=== PATIENT | female | born 1980 | race Two or more races ===

== ENCOUNTER 2024-07-16 15:16 | Emergency (ER) | payer OTHER, SELFPAY ==
[2024-07-16 15:23] VITALS: BP 133/96
[2024-07-16 15:54] LABS: % Basophils 0.4 % (0-2); % Eosinophils 1.5 % (0-6); % Immature Granulocytes 0.3 % (0-0.5); % Lymphocytes 28.1 % (20.5-51.1); % Monocytes 6.3 % (1.7-9.3); % Neutrophils 63.4 % (42.2-75.2); Absolute Eosinophils 0.1 10^3/uL (0-0.7); Absolute Lymphocytes 2.2 10^3/uL (1.2-3.4); Absolute Monocytes 0.5 10^3/uL (0.1-0.6); Absolute Neutrophils 4.9 10^3/uL (1.4-6.5); Hematocrit 39.1 % (37.0-47.0); Hemoglobin 13.4 g/dL (12.0-16.0); Mean Corp Hgb Conc. 34.3 g/dL (33.0-37.0); Mean Corpuscular Hgb 31.2 pg (27.0-31.0); Mean Corpuscular Volume 90.9 fL (81.0-99.0); Mean Platelet Volume 9.4 fL (7.4-10.4); Nucleated Red Blood Cells % 0 %; Platelet Count 366 10^3/uL (130-400); Red Cell Dist. Width 12.7 % (11.5-14.5); White Blood Cell Count 7.8 10^3/uL (4.8-10.8)
[2024-07-16 15:56] LABS: Urine Albumin Negative (Neg - Trace); Urine Bilirubin Negative (Negative); Urine Character Clear (Clear); Urine Color Yellow; Urine Glucose Negative (Negative); Urine Ketone Negative (Negative); Urine Leukocyte Negative (Negative); Urine Nitrite Negative (Negative); Urine Occult Blood Negative (Negative); Urine Urobilinogen Negative (Neg - 1+)
[2024-07-16 16:04] VITALS: BMI 34.9
[2024-07-16 16:05] LABS: HCG, Serum Qualitative Screen Negative
[2024-07-16 16:07] VITALS: BP 106/66
[2024-07-16 16:10] LABS: ALT (SGPT) 47 U/L (0-35); AST (SGOT) 30 U/L (14-36); Albumin 4.3 g/dl (3.5-5.0); Alkaline Phosphatase 100 U/L (38-126); Blood Urea Nitrogen 16 mg/dl (7-17); Calcium 10.4 mg/dl (8.4-10.2); Carbon Dioxide 26 mmol/L (22-30); Chloride 106 mmol/L (98-107); Estimated Creatinine Clearance 110 ml/min; Glucose 99 mg/dl (70-99); Lipase 131 U/L (23-300); Potassium 4.2 mmol/L (3.5-5.1); Sodium 141 mmol/L (135-145); Total Bilirubin 0.4 mg/dl (0.2-1.3); Total Protein 7.7 g/dl (6.3-8.2); eGFR > 60.00
--- NOTE | 2024-07-16 16:26 | ED.GENMED ---
History of Present Illness
General
Chief Complaint: Abdominal Pain
Source: patient
Exam Limitations: none
Time Seen by Provider: 07/16/24 16:12
Nursing documentation reviewed up to this point in time: agreed with
History of Present Illness
History of Present Illness:
Patient is a 43-year-old female past medical history of Crohn's since age 11 well-controlled on Apriso oral medication. She reports for the past week and a half she has had right-sided abdominal pain and typically when she gets Crohn's pain she has
pain on the left side. She does feel wraparound to the back. She does feel slightly worse with food and worsens throughout the day. She is urinating a little more frequently but denies any burning, pain. She denies any fever or chills. She
denies any change in stool habits. She is followed by GI Dr. Lexx Calvo at [place].
She denies any chest pain ,denies any shortness of breath.
Pt does not smoke
Review of Systems
Review of Systems
Allergies reviewed?: Yes
All Other Systems: ROS reviewed and negative except as documented in HPI and ROS
Constitutional: Reports no symptoms; Denies fever, fatigue or chills
Respiratory: Reports no symptoms; Denies trouble breathing
Cardiac: Reports no symptoms; Denies chest pain, palpitations or syncope
ABD/GI: Reports abdominal pain; Denies nausea, vomiting or diarrhea
: Reports frequency; Denies flank pain, urgency or discharge
Musculoskeletal: Reports back pain (right sided abd pain radiates to back )
Skin: Reports no symptoms
Neurological: Reports no symptoms
Psychiatric: Reports no symptoms
Phy Exam
General Physical Exam
General Presentation: no apparent distress
General age: appears stated age
General Skin: warm and dry
General Habitus: normal
General Mental: alert
General Hydration: appears well hydrated
Cardiovascular Exam
Cardiovascular Exam: no murmur, normal peripheral pulses and tachycardia
Pulmonary Exam
Pulmonary Exam: lungs clear and no respiratory distress
Gastrointestinal Exam
Gastrointestinal Exam: other (mild right sided and left sided upper and mid abdominal pain)
Neurological Exam
Neurological Exam: alert and oriented x3
Musculoskeletal Exam
Musculoskeletal Exam: full ROM
Skin Exam
Skin Exam: normal color and warm/dry
Psychiatric Exam
Psychiatric Exam: normal mood/affect
Course
Orders/Labs/Results
Orders:
Orders
07/16/24 15:28
Test Result ONCE
07/16/24 15:38
Complete Blood Count/With Diff Urgent
Comprehensive Metabolic Panel Urgent
HCG, Serum Qualitative Screen Urgent
Comment: Notify provider if positive test present
Lipase Urgent
Urinalysis Reflex To Culture Urgent
Date Specimen was Collected: 07/16/24
Time Specimen was Collected: 15:28
07/16/24 16:23
IV Insert/Care/Rem.- Treatment PRN
0.9% Sodium Chloride 1000 ml [Nss] 1,000 ml IV BOLUS
Iohexol [Omnipaque] See Protocol PO NOW STA
Morphine Sulfate 4 mg IV NOW STA
Ondansetron Injectable [Zofran] 4 mg IV NOW STA
07/16/24 16:24
CT Abd/pel W Iv And Oral Contr Urgent
Comment:
Reason For Exam: right sided abd pain (new ) and mild left side
07/16/24 19:37
Morphine Sulfate 4 mg IV NOW STA
Abnormal Lab Results
07/16/24
15:38
MCH 31.2 H pg
(27.0-31.0)
Calcium 10.4 H mg/dl
(8.4-10.2)
ALT 47 H U/L
(0-35)
07/16/24 15:38
07/16/24 15:38
Vital Signs
Initial and Last Documented VS:
Initial Vital Signs
Temp Pulse Resp BP Pulse Ox
97.8 F 104 16 133/96 100
07/16/24 15:23 07/16/24 15:23 07/16/24 15:23 07/16/24 15:23 07/16/24 15:23
Last Documented Vital Signs
Temp Pulse Resp BP Pulse Ox
97.8 F 104 16 107/72 95
07/16/24 15:23 07/16/24 15:23 07/16/24 15:23 07/16/24 18:00 07/16/24 18:30
Caseworker consulted with Physician
Caseworker consulted with physician?: Yes
Name of Physician Consulted: Sohan
MDM/Problems Addressed
Differential Diagnosis Includes:
Not limited to biliary stone obstruction, pancreatitis, GERD
MDM/Problems Addressed:
Patient is a 43-year-old female history of Crohn's since age 11 currently controlled on medication followed by GI presents to the ER for evaluation of right upper quadrant pain that radiates to her back. She denies any rib pain denies any shortness
of breath or chest pain. She was concerned that this was something to do with her liver. She presents awake alert no acute distress denies any nausea vomiting she is afebrile and well-appearing. Her white count is normal her hemoglobin is normal;
her ALT is very minimally elevated normal bilirubin normal AST normal alk phos; negative urinalysis. CT was done that showed mild rectal wall thickening suggestive of mild proctitis normal appendix and no other acute findings her biliary ducts are
normal her gallbladder surgically absent her liver is normal and her kidneys are normal. She is very mildly sore on palpation of RUQ possible muscular in nature. No complaints of shortness of breath, nontachypneic nonhypoxic no PE DVT risk
factors. She does not smoke she is on control no prior history of DVT PE.
will DC with close outpatient follow-up with her GI specialist at [place]. Case reviewed with ED physician.
Chronic conditions affecting care:
Crohn's disease
*Radiology
Radiology exam reviewed: radiology read reviewed
*Pulse Oximetry
Patient hypoxic: no (Follow-up with psychiatry as scheduled)
*Critical Care Note
Total Time (30-74mins, 75-104mins- exclusive of procedures): Not Applicable
ED Attending Note
-
Portions of this chart may have been created with voice recognition software.� Occasional wrong word or��sound alike� substitutions may have occurred due to the inherent limitations of voice recognition software.
Discharge Plan
Departure
Patient Disposition: Home (Routine Discharge)
Date of Disposition: 07/16/24
Time of Disposition: 20:21
Patient with high blood pressure during this ER visit?: Yes
Condition: Fair
Covid-19: Not Applicable
Discharge Problem:
Abdominal pain
Instructions: Abdominal Pain, BLOOD PRESSURE
Referrals:
Kiah Fernandez DO [Family Provider] -
Activity Restrictions/Additional Instructions:
As discussed please follow-up with a GI specialist for further reevaluation of your symptoms. Return if any worsening of symptoms.
Interventions
Interventions:
*Risk Screen - Suicide Last Done: 07/16/24 15:23
*General Assessment Last Done: 07/16/24 15:27
*Neglect/Abuse Screening Last Done: 07/16/24 15:23
*ED- Fall Risk Assessment Last Done: 07/16/24 16:04
*ED COVID-19 Vaccine History Last Done: 07/16/24 15:23
IV-Vsxuhr-Gcwaicawvn Assessment Last Done: 07/16/24 16:04
Discharge Date and Time
Print Language: DJIBOUTIAN
[2024-07-16] MEDS: NSS 1000 IV (16:36)
[2024-07-16] MEDS: MORPHINE SULFATE 4 MG IV ×2 (16:36→19:48)
[2024-07-16] MEDS: OMNIPAQUE 50 ML PO (16:37)
[2024-07-16] MEDS: ZOFRAN 4 MG IV (16:37)
[2024-07-16 17:00] VITALS: BP 106/76
[2024-07-16 18:00] VITALS: BP 107/72
[2024-07-16 19:00] VITALS: BP 101/76
[2024-07-16 20:00] VITALS: BP 117/78
== END 2024-07-16 21:15 | disposition home or self-care (01) ==
LOC: EMR 15:16
PROVIDERS: Student in an Organized Health Care Education/Training Program; EMERGENCY PHYSICIAN Emergency Medicine; FAMILY PHYSICIAN Internal Medicine
DX: R10.11 Right upper quadrant pain (principal); K50.90 Crohn's disease, unspecified, without complications; Z79.899 Other long term (current) drug therapy; Z79.3 Long term (current) use of hormonal contraceptives
CPT/HCPCS: 96374; 96375; 96361; 99284; 74177; 80053; 81003; 83690; 84703; 85025; Q9967